=== PATIENT | female | born 2000 | race Caucasian/White ===

== ENCOUNTER 2022-09-13 23:30 | Emergency (ER) | payer BC, MEDICAID ==
[~2022-09-13] VITALS: Ht 154.9 cm; Wt 56.2 kg
[2022-09-13 23:41] VITALS: BP 135/72
--- NOTE | 2022-09-13 23:48 | NUR ---
Dr. Jimenez examinnig patient.
[2022-09-13] MEDS ORDERED: MECLIZINE 25 MG TAB PO ONE (23:55)
[2022-09-13] MEDS ORDERED: ONDANSETRON 4 MG TAB PO ONE (23:55)
[2022-09-14] MEDS ORDERED: ONDA-188 SL (00:58)
[2022-09-14] MEDS ORDERED: MECL-303 PO (00:58)
[2022-09-14 01:05] VITALS: BP 135/72
--- NOTE | 2022-09-14 01:05 | NUR ---
Patient discharged with v/s stable. Written and verbal after care instructions given and explained. Patient alert, oriented and verbalized understanding of instructions. Ambulatory with steady gait. All questions addressed prior to discharge. ID band removed. Patient advised to follow up with PMD. Rx of ANTIVERT, ZOFRAN given. Patient educated on indication of medication including possible reaction and side effects. Opportunity to ask questions provided and answered.
== END 2022-09-14 01:05 | disposition home or self-care (01) ==
LOC: MED 23:30
DX: R42 Dizziness and giddiness (principal)
CPT/HCPCS: 99283; J8597; Q0162